=== PATIENT | male | born 1990 | race Caucasian/White ===

== ENCOUNTER → 2021-11-16 | Outpatient (CLI) | payer OTHER | END | disposition home or self-care (01) | LOC: RADMN 08:29 | PROVIDERS: ATTEND Family Medicine | DX: J90 Pleural effusion, not elsewhere classified (principal); M47.814 Spondylosis without myelopathy or radiculopathy, thoracic region; R76.11 Nonspecific reaction to tuberculin skin test without active tuberculosis | CPT/HCPCS: 71046 ==